=== PATIENT | male | born 1995 | race Caucasian/White ===

== ENCOUNTER 2016-12-31 12:52 | Emergency (ER) | payer SELFPAY ==
[2016-12-31] MEDS ORDERED: Ketorolac 60 MG/2 ML SDV IM ONE (13:32)
[2016-12-31] MEDS ORDERED: Ondansetron 4 MG Tab.DIS PO ONE (13:32)
--- NOTE | 2016-12-31 13:38 | EDM.PDOC ---
ED HPI GENERAL MEDICAL PROBLEM - General Chief Complaint: General Stated Complaint: FEVER,WEAK AND VOMITING Time Seen by Provider: 12/31/16 13:00 Source of Information: Reports: Patient History Limitations: Reports: No Limitations - History of Present Illness INITIAL COMMENTS - FREE TEXT/NARRATIVE: HISTORY AND PHYSICAL: History of present illness: Patient is a 21-year-old male who presents to the emergency room today with complaints of headache, fatigue, nausea, vomiting, diarrhea 1 week. States he was at work today and had one emesis and was told to call be evaluated prior to returning to work. Patient denies any fever, chills, chest pain, shortness of breath or abdominal pain. She denies any recent travel. Denies any blood in stools. No dysuria. Review of systems: As per history of present illness and below otherwise all systems reviewed and negative. Past medical history: As per history of present illness and as reviewed below otherwise noncontributory. Surgical history: As per history of present illness and as reviewed below otherwise noncontributory. Social history: No reported history of drug or alcohol abuse. Family history: As per history of present illness and as reviewed below otherwise noncontributory. Physical exam: Gen.: Nontoxic appearing 21-year-old male. Who is well-developed and well- nourished. Able to speak in full sentences without shortness of breath. Alert and oriented. HEENT: Atraumatic, normocephalic, pupils reactive, negative for conjunctival pallor or scleral icterus, mucous membranes moist, throat clear, neck supple, nontender, trachea midline. Lungs: Inspiratory wheezing noted to posterior bases bilaterally otherwise clear to auscultation, breath sounds equal bilaterally, chest nontender. Heart: S1S2, regular, negative for clicks, rubs, or JVD. Abdomen: Soft, nondistended, nontender. Negative for masses. Negative for costovertebral tenderness. Pelvis: Stable nontender. Genitourinary: Deferred. Rectal: Deferred. Extremities: Atraumatic, negative for cords or calf pain. Neurovascular unremarkable. Neuro: Awake, alert, oriented. Cranial nerves II through XII unremarkable. Cerebellum unremarkable. Motor and sensory unremarkable throughout. Exam nonfocal. Diagnostics: CBC, CMP, influenza, chest x-ray Therapeutics: Patient declined an IV at this time IM Toradol Zofran ODT Impression: Viral Illness Plan: 1. Viral illness does take several days to run its course. I would like you to continue to drink plenty of fluids to prevent dehydration. Zofran as needed to prevent nausea. Popejoy diet over the next couple days. 2. Please follow-up with your primary care provider in the next 1-2 days. Returned to the ED as needed as discussed Definitive disposition and diagnosis as appropriate pending reevaluation and review of above. head Pain Score (Numeric/FACES): 4 - Related Data Allergies Allergy/AdvReac Type Severity Reaction Status Date / Time No Known Allergies Allergy Verified 12/31/16 13:08 Home Meds: Home Meds . [No Known Home Meds] 12/31/16 [History] Past Medical History - Past Health History Medical/Surgical History: Denies Medical/Surgical History Social & Family History - Family History Family Medical History: Noncontributory - Tobacco Use Smoking Status *Q: Current Every Day Smoker Years of Tobacco use: 8 Packs/Tins Daily: 1 - Recreational Drug Use Recreational Drug Use: No ED ROS GENERAL - Review of Systems Review Of Systems: ROS reveals no pertinent complaints other than HPI. ED EXAM, GENERAL - Physical Exam Exam: See Below (See dictation) Course - Vital Signs Last Recorded V/S: Last Vital Signs Temp 36.6 C 12/31/16 12:52 Pulse 83 12/31/16 12:52 Resp 18 12/31/16 12:52 BP 147/66 H 12/31/16 12:52 Pulse Ox 99 12/31/16 12:52 - Orders/Labs/Meds Orders: Active Orders 24 hr Category Date Time Status Chest 1V Frontal [CR] Stat Exams 12/31/16 14:23 Taken Labs: Laboratory Tests 12/31/16 12/31/16 Range/Units 13:45 13:45 WBC 4.04 (4.0-11.0) K/uL RBC 4.90 (4.50-5.90) M/uL Hgb 16.0 (13.0-17.0) g/dL Hct 47.2 (38.0-50.0) % MCV 96.3 (80.0-98.0) fL MCH 32.7 H (27.0-32.0) pg MCHC 33.9 (31.0-37.0) g/dL RDW Std Deviation 50.3 (28.0-62.0) fl RDW Coeff of Dayana 14 (11.0-15.0) % Plt Count 187 (150-400) K/uL MPV 11.40 (7.40-12.00) fL Neut % (Auto) 55.4 (48.0-80.0) % Lymph % (Auto) 33.2 (16.0-40.0) % [place] % (Auto) 8.2 (0.0-15.0) % Eos % (Auto) 3.0 (0.0-7.0) % Baso % (Auto) 0.2 (0.0-1.5) % Neut # (Auto) 2.2 (1.4-5.7) K/uL Lymph # (Auto) 1.3 (0.6-2.4) K/uL [place] # (Auto) 0.3 (0.0-0.8) K/uL Eos # (Auto) 0.1 (0.0-0.7) K/uL Baso # (Auto) 0.0 (0.0-0.1) K/uL Nucleated RBC % 0.0 /100WBC Nucleated RBCs # 0 K/uL Sodium 143 (136-146) mmol/L Potassium 4.8 (3.5-5.1) mmol/L Chloride 106 (98-110) mmol/L Carbon Dioxide 29 (21-31) mmol/L BUN 12 (6.0-23.0) mg/dL Creatinine 0.9 (0.6-1.5) mg/dL Est Cr Clr Drug Dosing TNP Estimated GFR (MDRD) > 60.0 ml/min Glucose 85 (60-110) mg/dL Calcium 9.7 (8.8-10.8) mg/dL Total Bilirubin 1.1 (0.1-1.5) mg/dL AST 21 (5-40) IU/L ALT 16 (8-54) IU/L Alkaline Phosphatase 82 (40-150) Total Protein 7.1 (6.0-8.0) g/dL Albumin 4.2 (3.5-5.0) g/dL Globulin 2.9 (2.0-3.5) g/dL Albumin/Globulin Ratio 1.4 (1.3-2.8) Meds: Medications Discontinued Medications Generic Name Dose Route Start Last Admin Trade Name Sophie PRN Reason Stop Dose Admin Ketorolac Tromethamine 60 mg 12/31/16 13:32 12/31/16 13:40 Toradol IM 12/31/16 13:33 60 mg ONETIME ONE Administration Ondansetron HCl 4 mg 12/31/16 13:32 12/31/16 13:40 Zofran Odt PO 12/31/16 13:33 4 mg ONETIME ONE Administration Departure - Departure Time of Disposition: 14:40 Disposition: Home, Self-Care 01 Condition: Good Clinical Impression: Viral illness - Discharge Information Referrals: PCP,None [Primary Care Provider] - Forms: ED Department Discharge Additional Instructions: My general discharge The following information is given to patients seen in the emergency department who are being discharged to home. This information is to outline your options for follow-up care. We provide all patients seen in our emergency department with a follow-up referral. The need for follow-up, as well as the timing and circumstances, are variable depending upon the specifics of your emergency department visit. If you don't have a primary care physician on staff, we will provide you with a referral. We always advise you to contact your personal physician following an emergency department visit to inform them of the circumstance of the visit and for follow-up with them and/or the need for any referrals to a consulting specialist. The emergency department will also refer you to a specialist when appropriate. This referral assures that you have the opportunity for follow-up care with a specialist. All of these measure are taken in an effort to provide you with optimal care, which includes your follow-up. Under all circumstances we always encourage you to contact your private physician who remains a resource for coordinating your care. When calling for follow-up care, please make the office aware that this follow-up is from your recent emergency room visit. If for any reason you are refused follow-up, please contact the [facility] Emergency Department at and asked to speak to the emergency department charge nurse. [facility] [address] [place] [id number] 1. Viral illness does take several days to run its course. I would like you to continue to drink plenty of fluids to prevent dehydration. Zofran as needed to prevent nausea. Popejoy diet over the next couple days. 2. Please follow-up with your primary care provider in the next 1-2 days. Returned to the ED as needed as discussed - My Orders Last 24 Hours: My Active Orders 12/31/16 14:23 Chest 1V Frontal [CR] Stat - Assessment/Plan Last 24 Hours: My Active Orders 12/31/16 14:23 Chest 1V Frontal [CR] Stat
[2016-12-31 14:13] LABS: CHLORIDE,CL 106 mmol/L (98-110); SODIUM,NA 143 mmol/L (136-146)
--- NOTE | 2016-12-31 14:38 | CR ---
EXAMINATION: Portable chest radiograph. HISTORY: Shortness of breath. FINDINGS: The trachea is midline. The cardiomediastinal silhouette is within normal limits. No pulmonary infilt rates, effusions or pneumothorax. Osseous structures appear unremarkable. IMPRESSION: No acute cardiopulmonary process.
[2016-12-31 14:51] VITALS: BP 108/62
== END 2016-12-31 14:51 | disposition home or self-care (01) ==
LOC: MW.ED 12:52
DX: B34.9 Viral infection, unspecified (principal); F17.210 Nicotine dependence, cigarettes, uncomplicated
CPT/HCPCS: 36415; 71010; 80053; 85025; 87804; 96372; 99283; A9270; J1885

== ENCOUNTER 2018-10-22 21:59 | Emergency (ER) | payer SELFPAY ==
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
[2018-10-23 01:02] VITALS: BP 122/67
== END 2018-10-23 01:00 | disposition home or self-care (01) ==
LOC: MW.ED 21:59
DX: S00.01XA Abrasion of scalp, initial encounter (principal); F17.210 Nicotine dependence, cigarettes, uncomplicated; Y04.8XXA Assault by other bodily force, initial encounter
CPT/HCPCS: 70450; 70450-26; 99284-25

== ENCOUNTER 2018-11-10 19:01 | Emergency (ER) | payer SELFPAY ==
[2018-11-10] MEDS ORDERED: Sodium Chloride 0.9% 2.5 ML Syringe FLUSH PRN (19:18)
[2018-11-10] MEDS ORDERED: Sodium Chloride 0.9% 10 ML Syringe FLUSH PRN (19:18)
--- NOTE | 2018-11-10 19:20 | EDM.PDOC ---
ED HPI GENERAL MEDICAL PROBLEM - General Chief Complaint: Chest Pain Stated Complaint: CHEST PAIN Time Seen by Provider: 11/10/18 19:05 - History of Present Illness INITIAL COMMENTS - FREE TEXT/NARRATIVE: HISTORY AND PHYSICAL: History of present illness: Patient is 23-year-old male presents with chest pain this is vaguely described without associated shortness breath nausea vomiting diaphoresis or palpitations patient has history of anxiety he denies any other concern. Review of systems: As per history of present illness and below otherwise all systems reviewed and negative. Past medical history: As per history of present illness and as reviewed below otherwise noncontributory. Surgical history: As per history of present illness and as reviewed below otherwise noncontributory. Social history: No reported history of drug or alcohol abuse. Family history: As per history of present illness and as reviewed below otherwise noncontributory. Physical exam: HEENT: Atraumatic, normocephalic, pupils reactive, negative for conjunctival pallor or scleral icterus, mucous membranes moist, throat clear, neck supple, nontender, trachea midline. Lungs: Clear to auscultation, breath sounds equal bilaterally, chest nontender. Heart: S1S2, regular, negative for clicks, rubs, or JVD. Abdomen: Soft, nondistended, nontender. Negative for masses or hepatosplenomegaly. Negative for costovertebral tenderness. Pelvis: Stable nontender. Genitourinary: Deferred. Rectal: Deferred. Extremities: Atraumatic, negative for cords or calf pain. Neurovascular unremarkable. Neuro: Awake, alert, oriented. Cranial nerves II through XII unremarkable. Cerebellum unremarkable. Motor and sensory unremarkable throughout. Exam nonfocal. Diagnostics: CBC CMP troponin PT/INR chest x-ray EKG Therapeutics: monitor technician Impression: #1 atypical chest pain #2 history of anxiety Definitive disposition and diagnosis as appropriate pending reevaluation and review of above. chest Pain Score (Numeric/FACES): 2 - Related Data Allergies Allergy/AdvReac Type Severity Reaction Status Date / Time No Known Allergies Allergy Verified 10/22/18 22:15 Home Meds: Home Meds . [No Known Home Meds] 12/31/16 [History] Past Medical History - Past Health History Medical/Surgical History: Denies Medical/Surgical History HEENT History: Reports: None Cardiovascular History: Reports: None Respiratory History: Reports: None Gastrointestinal History: Reports: None Genitourinary History: Reports: None Musculoskeletal History: Reports: None Neurological History: Reports: None Psychiatric History: Reports: None Endocrine/Metabolic History: Reports: None Hematologic History: Reports: None Immunologic History: Reports: None Oncologic (Cancer) History: Reports: None Dermatologic History: Reports: None - Infectious Disease History Infectious Disease History: Reports: None - Past Surgical History Head Surgeries/Procedures: Reports: None Male Surgical History: Reports: None Social & Family History - Family History Family Medical History: Noncontributory - Caffeine Use Caffeine Use: Reports: None ED ROS GENERAL - Review of Systems Review Of Systems: ROS reveals no pertinent complaints other than HPI. ED EXAM, GENERAL - Physical Exam Exam: See Below (See dictation) Course - Vital Signs Last Recorded V/S: Last Vital Signs Temp 36.0 C 11/10/18 19:05 Pulse 75 11/10/18 19:05 Resp 18 11/10/18 19:05 BP 136/42 L 11/10/18 19:05 Pulse Ox 98 11/10/18 19:05 Departure - Departure Time of Disposition: 19:19 Disposition: Home, Self-Care 01 Condition: Good Clinical Impression: Atypical chest pain, History of anxiety - Discharge Information Referrals: PCP,None [Primary Care Provider] - Additional Instructions: The following information is given to patients seen in the emergency department who are being discharged to home. This information is to outline your options for follow-up care. We provide all patients seen in our emergency department with a follow-up referral. The need for follow-up, as well as the timing and circumstances, are variable depending upon the specifics of your emergency department visit. If you don't have a primary care physician on staff, we will provide you with a referral. We always advise you to contact your personal physician following an emergency department visit to inform them of the circumstance of the visit and for follow-up with them and/or the need for any referrals to a consulting specialist. The emergency department will also refer you to a specialist when appropriate. This referral assures that you have the opportunity for followup care with a specialist. All of these measure are taken in an effort to provide you with optimal care, which includes your followup. Under all circumstances we always encourage you to contact your private physician who remains a resource for coordinating your care. When calling for followup care, please make the office aware that this follow-up is from your recent emergency room visit. If for any reason you are refused follow-up, please contact the [facility] emergency department at and asked to speak to the emergency department charge nurse. ENMANUEL [facility] [place] [id number] Follow-up primary medical doctor as needed as discussed return as needed as discussed. Stop Smoking
[2018-11-10 19:45] VITALS: BP 124/71
[2018-11-10 19:52] LABS: CHLORIDE,CL 102 mmol/L (98-107); SODIUM,NA 142 mmol/L (136-148)
--- NOTE | 2018-11-10 20:16 | CR ---
INDICATION: chest pain, short of breath CHEST, ONE VIEW AP radiographs of the chest were performed. Comparison: 12/31/2016. The lungs appear clear and no pleural effusions are identified. No pneumothorax is seen. The cardiomediastinal silhouette and pulmonary vasculature appear normal, as do the visualized bones. IMPRESSION: No acute intrathoracic abnormality identified. TORO PHILLIPS MD [employer] [facility] [employer] Dictated by: Adelfo Phillips MD @ 11/10/2018 20:14:34 (Electronically Signed)
== END 2018-11-10 20:06 | disposition home or self-care (01) ==
LOC: MW.ED 19:01
DX: R07.89 Other chest pain (principal)
CPT/HCPCS: 36415; 71045; 71045-26; 80053; 84484; 85025; 85610; 93005; 99283; 99285-25

== ENCOUNTER 2019-02-11 10:38 | Emergency (ER) | payer SELFPAY ==
--- NOTE | 2019-02-11 10:49 | EDM.PDOC ---
ED HPI GENERAL MEDICAL PROBLEM - General Chief Complaint: Back Pain or Injury Stated Complaint: PAIN IN BACK Time Seen by Provider: 02/11/19 10:48 Source of Information: Reports: Patient History Limitations: Reports: No Limitations - History of Present Illness INITIAL COMMENTS - FREE TEXT/NARRATIVE: HISTORY AND PHYSICAL: History of present illness: Patient is a 23-year-old male who presents to the emergency room today with complaints of lumbar back pain which started this morning. He states the pain is to the low lumbar region, bilaterally but right greater than left. He has pain when he has to bear weight on the right lower extremity stating that the pain wraps from low back into his gluteus and posterior thigh. He denies any numbness, tingling or saddle paresthesia. Denies any urinary or fecal incontinence. Denies any neurological symptoms. Pain is aggravated with weightbearing, bending at the hip. States pain is somewhat alleviated when resting on his right side. He denies any injury, trauma or falls. Denies any previous injury or chronic back pain. Review of systems: As per history of present illness and below otherwise all systems reviewed and negative. Past medical history: As per history of present illness and as reviewed below otherwise noncontributory. Surgical history: As per history of present illness and as reviewed below otherwise noncontributory. Social history: See social history for further information Family history: As per history of present illness and as reviewed below otherwise noncontributory. Physical exam: General: Well-developed and well-nourished 23-year-old male. Alert and oriented. Nontoxic appearing and in no acute distress. HEENT: Atraumatic, normocephalic, pupils equal and reactive bilaterally, negative for conjunctival pallor or scleral icterus, mucous membranes moist, neck supple, nontender, trachea midline. No drooling or trismus noted. No meningeal signs. No hot potato voice noted. Lungs: Clear to auscultation, breath sounds equal bilaterally, chest nontender. Heart: S1S2, regular rate and rhythm without overt murmur Abdomen: Soft, nondistended, nontender. Negative for masses or hepatosplenomegaly. Negative for costovertebral tenderness. Pelvis: Stable nontender. : This was done with consent and application technical designer at bedside. No evidence of hernia. No testicular erythema, soft tissue swelling or pain. Unremarkable exam. C-spine/Back: No pinpoint vertebral tenderness upon palpation. No crepitus, step -offs or obvious deformities. Paraspinous muscular tenderness to the right above the iliac crest Patient is ambulatory into the emergency room without difficulty or deficit. Able to rock back on heels and walk on toes. Denies any urinary or fecal incontinence. Denies any numbness, tingling or saddle paresthesia. Skin: Intact, warm, dry. No lesions or rashes noted. Extremities: Atraumatic, moves all extremities per self without difficulty or deficits, negative for cords or calf pain. Neurovascular unremarkable. Neuro: Awake, alert, oriented. Cranial nerves II through XII unremarkable. Cerebellum unremarkable. Motor and sensory unremarkable throughout. Exam nonfocal. Notes: Patient states he does want his testicles looked at as he has a strange sensation of "pulling". Physical exam is within normal limits. He denies any concerns of penile drainage/discharge. Denies any concerns for STD testing. Besides the sensation of "pulling" he has no GI/ symptoms. X-ray shows no acute findings. Supportive care measures were reviewed and discussed. Voices understanding and is agreeable to plan of care. Denies any further questions or concerns at this time. Diagnostics: Lumbar x-ray Therapeutics: Toradol, Norflex (DECLINED) Prescription: Diclofenac Flexeril Impression: Lumbar Back Pain with sciatica Plan: 1. When resting please lay on a flat firm surface. Limit your immobility to prevent muscle stiffness. Get up to ambulate/move around/gentle stretching multiple times throughout the day. May alternate heat and ice to the painful areas 2. Tylenol as needed for back pain. Otherwise take the prescribed Flexeril and diclofenac as directed. Diclofenac is an anti-inflammatory so do not take any additional NSAIDs with this medication, such as ibuprofen or Aleve. Flexeril as a muscle relaxant, this medication may cause drowsiness a do not take it will driving her needing to be functioning outside of the house. 3. Please follow-up with your primary care provider as we discussed. Return to the ED as needed and as discussed. Definitive disposition and diagnosis as appropriate pending reevaluation and review of above. Lower Back Pain Score (Numeric/FACES): 7 - Related Data Allergies Allergy/AdvReac Type Severity Reaction Status Date / Time No Known Allergies Allergy Verified 02/11/19 10:54 Home Meds: Home Meds . [No Known Home Meds] 12/31/16 [History] Past Medical History - Past Health History Medical/Surgical History: Denies Medical/Surgical History HEENT History: Reports: None Cardiovascular History: Reports: None Respiratory History: Reports: None Gastrointestinal History: Reports: None Genitourinary History: Reports: None Musculoskeletal History: Reports: None Neurological History: Reports: None Psychiatric History: Reports: None Endocrine/Metabolic History: Reports: None Hematologic History: Reports: None Immunologic History: Reports: None Oncologic (Cancer) History: Reports: None Dermatologic History: Reports: None - Infectious Disease History Infectious Disease History: Reports: None - Past Surgical History Head Surgeries/Procedures: Reports: None Male Surgical History: Reports: None Social & Family History - Family History Family Medical History: Noncontributory - Caffeine Use Caffeine Use: Reports: None ED ROS GENERAL - Review of Systems Review Of Systems: Comprehensive ROS is negative, except as noted in HPI. ED EXAM,LOWER BACK PAIN/INJURY - Physical Exam Exam: See Below (See dictation) Course - Vital Signs Last Recorded V/S: Last Vital Signs Temp 97.1 F 02/11/19 10:49 Pulse 126 H 02/11/19 10:49 Resp 18 02/11/19 10:49 BP 143/62 H 02/11/19 10:49 Pulse Ox 96 02/11/19 10:49 - Orders/Labs/Meds Meds: Medications Discontinued Medications Generic Name Dose Route Start Last Admin Trade Name Freq PRN Reason Stop Dose Admin Ketorolac Tromethamine 60 mg 02/11/19 11:03 Toradol IM 02/11/19 11:04 ONETIME ONE Orphenadrine Citrate 60 mg 02/11/19 11:03 Norflex IM 02/11/19 11:04 NOW STA Departure - Departure Time of Disposition: 11:09 Disposition: Home, Self-Care 01 Clinical Impression: Lumbar back pain - Discharge Information Referrals: PCP,None [Primary Care Provider] - Forms: ED Department Discharge Additional Instructions: The following information is given to patients seen in the emergency department who are being discharged to home. This information is to outline your options for follow-up care. We provide all patients seen in our emergency department with a follow-up referral. The need for follow-up, as well as the timing and circumstances, are variable depending upon the specifics of your emergency department visit. If you don't have a primary care physician on staff, we will provide you with a referral. We always advise you to contact your personal physician following an emergency department visit to inform them of the circumstance of the visit and for follow-up with them and/or the need for any referrals to a consulting specialist. The emergency department will also refer you to a specialist when appropriate. This referral assures that you have the opportunity for follow-up care with a specialist. All of these measure are taken in an effort to provide you with optimal care, which includes your follow-up. Under all circumstances we always encourage you to contact your private physician who remains a resource for coordinating your care. When calling for follow-up care, please make the office aware that this follow-up is from your recent emergency room visit. If for any reason you are refused follow-up, please contact the [facility] Emergency Department at and asked to speak to the emergency department charge nurse. [facility] Primary Care [address] [place] [id number] [place] [address] 1. When resting please lay on a flat firm surface. Limit your immobility to prevent muscle stiffness. Get up to ambulate/move around/gentle stretching multiple times throughout the day. May alternate heat and ice to the painful areas 2. Tylenol as needed for back pain. Otherwise take the prescribed Flexeril and diclofenac as directed. Diclofenac is an anti-inflammatory so do not take any additional NSAIDs with this medication, such as ibuprofen or Aleve. Flexeril as a muscle relaxant, this medication may cause drowsiness a do not take it will driving her needing to be functioning outside of the house. 3. Please follow-up with your primary care provider as we discussed. Return to the ED as needed and as discussed.
[2019-02-11] MEDS ORDERED: Ketorolac 60 MG/2 ML SDV IM ONE (11:03)
[2019-02-11 11:04] VITALS: BP 143/62; PULSE 126
--- NOTE | 2019-02-11 11:45 | CR ---
Indication: Low back pain. Technique: Three views of the lumbar spine were obtained. Comparison: None Findings: The vertebral body heights are well maintained. Intervertebral disc space narrowing is identified at L3-4 and L5-S1. No fracture subluxation is identified. Facet joint arthropathy of the lower lumbar spine is identified. Impression: No acute fracture. Dictated by Swetha Magaña MD @ Feb 11 2019 11:42AM Signed by Dr. Swetha Magaña @ Feb 11 2019 11:43AM
== END 2019-02-11 12:00 | disposition home or self-care (01) ==
LOC: MW.ED 10:38
DX: M54.41 Lumbago with sciatica, right side (principal); M54.42 Lumbago with sciatica, left side
CPT/HCPCS: 72100; 72100-26; 99283; 99283-25

== ENCOUNTER 2019-04-15 23:39 | Emergency (ER) | payer OTHER ==
[2019-04-16 00:19] VITALS: BP 137/63; PULSE 77
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
[2019-04-16] MEDS ORDERED: Acetaminophen/oxyCODONE 325-5 MG Tab PO ONE (00:57)
[2019-04-16] MEDS ORDERED: Silver Sulfadiazine 1% Crm 50 GM Tube TOP ONE (00:57)
== END 2019-04-16 01:24 | disposition home or self-care (01) ==
LOC: MW.ED 23:39
DX: T22.412A Corrosion of unspecified degree of left forearm, initial encounter (principal); T32.0 Corrosions involving less than 10% of body surface; F17.210 Nicotine dependence, cigarettes, uncomplicated; Y29.XXXA Contact with blunt object, undetermined intent, initial encounter; Y99.0 Civilian activity done for income or pay
CPT/HCPCS: 99283; A9270

== ENCOUNTER 2019-05-01 02:26 | Emergency (ER) | payer SELFPAY ==
--- NOTE | 2019-05-01 02:36 | EDM.PDOC ---
ED HPI GENERAL MEDICAL PROBLEM - General Chief Complaint: Chest Pain Stated Complaint: CHEST PAIN Time Seen by Provider: 05/01/19 02:33 Source of Information: Reports: Patient History Limitations: Reports: No Limitations - History of Present Illness INITIAL COMMENTS - FREE TEXT/NARRATIVE: WILDA HPI: This is a 23-year-old male who woke up with chest pain radiating into his left axilla. Patient vomited. He denies any shortness of breath arm or jaw pain or diaphoresis denies any drug use or alcohol use. Patient has had multiple similar events in the past. PMHX/PSHX: Patient had a craniotomy for what sounds like an abscess Social History: Negative for tobacco, negative for alcohol, negative for street drugs or marijuana Family history: Hypertension ROS: see chart PE: VS afebrile vital signs stable General: No apparent distress Head: Atraumatic normocephalic no lumps bumps or bruises Eyes: EOMI PERRLA Ears: TMs intact no hemotympanum no signs of infection no mastoid tenderness Nose: No epistaxis nares patent no septal wall hematoma Throat: No pharyngeal erythema or exudate no tonsillar enlargement Neck: Supple, no cervical lymphadenopathy Chest wall: No point tenderness Heart: Regular rate and rhythm without murmur gallop or rub Lungs: Clear to auscultation and percussion without rales rhonchi or wheeze Abdomen: Soft nontender nondistended without guarding rigidity or rebound Neck: No spinal point tenderness full range of motion in all 6 directions Back: No spinal paraspinal or CVA tenderness Extremities: full rom through out. no effusions skin: Warm dry intact no rashes neurologic: cranial nerves II through XII intact. No focal motor or sensory deficits noted MDM: Differential diagnosis: ED course: Diagnosis: Disposition: Left Chest Pain Score (Numeric/FACES): 10 - Related Data Allergies Allergy/AdvReac Type Severity Reaction Status Date / Time No Known Allergies Allergy Verified 05/01/19 02:32 Home Meds: Home Meds . [No Known Home Meds] 05/01/19 [History] Past Medical History - Past Health History Medical/Surgical History: Denies Medical/Surgical History HEENT History: Reports: None Cardiovascular History: Reports: None Respiratory History: Reports: None Gastrointestinal History: Reports: None Genitourinary History: Reports: None Musculoskeletal History: Reports: None Neurological History: Reports: None Psychiatric History: Reports: None Endocrine/Metabolic History: Reports: None Hematologic History: Reports: None Immunologic History: Reports: None Oncologic (Cancer) History: Reports: None Dermatologic History: Reports: None - Infectious Disease History Infectious Disease History: Reports: None - Past Surgical History Head Surgeries/Procedures: Reports: None Male Surgical History: Reports: None Social & Family History - Family History Family Medical History: Noncontributory - Caffeine Use Caffeine Use: Reports: None ED ROS GENERAL - Review of Systems Review Of Systems: Comprehensive ROS is negative, except as noted in HPI. Respiratory: Reports: No Symptoms Cardiovascular: Reports: Chest Pain ED EXAM, GENERAL - Physical Exam Exam: See Below (See my dictation) Course - Vital Signs Last Recorded V/S: Last Vital Signs Temp 36.0 C 05/01/19 02:30 Pulse 88 05/01/19 02:30 Resp 22 H 05/01/19 02:30 BP 123/80 05/01/19 02:30 Pulse Ox 98 05/01/19 02:30 - Orders/Labs/Meds Orders: Active Orders 24 hr Category Date Time Status EKG Documentation Completion [RC] STAT Care 05/01/19 02:33 Active Meds: Medications Discontinued Medications Generic Name Dose Route Start Last Admin Trade Name Freq PRN Reason Stop Dose Admin Lorazepam 0.5 mg 05/01/19 02:44 05/01/19 02:51 Ativan PO 05/01/19 02:45 0.5 mg ONETIME ONE Administration Departure - Departure Time of Disposition: 03:10 Disposition: Home, Self-Care 01 Clinical Impression: Atypical chest pain Referrals: Arturo Jhaveri MD [Primary Care Provider] - Forms: ED Department Discharge Additional Instructions: Follow-up with your primary care doctor for further evaluation. Return if getting worse in any way. Sepsis Event Note - Evaluation Sepsis Screening Result: No Definite Risk - Focused Exam Vital Signs: Vital Signs Temp Pulse Resp BP Pulse Ox 05/01/19 02:30 36.0 C 88 22 H 123/80 98 Date Exam was Performed: 05/01/19 Time Exam was Performed: 03:10 - My Orders Last 24 Hours: My Active Orders 05/01/19 02:33 EKG Documentation Completion [RC] STAT - Assessment/Plan Last 24 Hours: My Active Orders 05/01/19 02:33 EKG Documentation Completion [RC] STAT
[2019-05-01] MEDS ORDERED: LORazepam 0.5 MG Tab PO ONE (02:44)
--- NOTE | 2019-05-01 02:59 | CR ---
INDICATION: Chest pain TECHNIQUE: Frontal view chest COMPARISON: November 10, 2018 FINDINGS/IMPRESSION : Normal cardiomediastinal silhouette. Clear lungs and pleural spaces. No acute osseous abnormality. Dictated by Kristyn Snyder MD @ May 01 2019 2:57AM Signed by Dr. Kristyn Snyder @ May 01 2019 2:58AM
[2019-05-01 03:11] VITALS: BP 114/72; PULSE 85
== END 2019-05-01 03:18 | disposition home or self-care (01) ==
LOC: MW.ED 02:26
DX: R07.89 Other chest pain (principal)
CPT/HCPCS: 71045; 93005; 99285; A9270; 99283

== ENCOUNTER 2019-05-11 20:34 | Emergency (ER) | payer BC ==
[2019-05-11 21:19] LABS: BLOOD UREA NITROGEN,BUN 16 mg/dL (7.0-18.0); CARBON DIOXIDE,CO2 29.5 mmol/L (21.0-32.0); CHLORIDE,CL 106 mmol/L (98-107); GLUCOSE RANDOM 90 mg/dL (74-106); POTASSIUM,K 4.2 mmol/L (3.5-5.1); SODIUM,NA 142 mmol/L (136-148)
--- NOTE | 2019-05-11 21:20 | CR ---
INDICATION: Chest pain, lightheadedness/dizziness, syncope, left arm and leg pain. TECHNIQUE: AP upright portable chest. COMPARISON: 05/01/2019. FINDINGS: The lungs are clear without pneumothorax. Normal heart size and pulmonary vascular pattern with no pleural effusions. Intact osseous thorax. IMPRESSION: No acute radiographic chest finding. Dictated by Beto Boss MD @ May 11 2019 9:16PM Signed by Dr. Beto Boss @ May 11 2019 9:17PM
--- NOTE | 2019-05-11 21:32 | CT ---
INDICATION: passed out CT HEAD WITHOUT CONTRAST TECHNIQUE: Multiple axial CT images were performed through the head without intravenous contrast administration. COMPARISON: 10/22/[address] FINDINGS: No acute intracranial hemorrhage is identified. No extra-axial collections are evident and there is no mass effect or midline shift. Ventricles are normal in size and configuration. Brain parenchyma appears normal with unremarkable christian-white differentiation. There are unchanged small defects in the low right occipital calvarium which may represent toney holes. No fractures are seen. Included portions of the paranasal sinuses and mastoid air cells are normally aerated. IMPRESSION: No acute intracranial abnormality identified. TORO PHILLIPS MD [facility] Dictated by Adelfo Phillips MD @ 05/11/2019 9:31:12 PM Dictated by: Adelfo Phillips MD @ 05/11/2019 21:31:33 (Electronically Signed)
--- NOTE | 2019-05-11 22:01 | EDM.PDOC ---
ED HPI GENERAL MEDICAL PROBLEM - General Chief Complaint: Chest Pain Stated Complaint: CHEST PAIN,PASSED OUT AT WORK Time Seen by Provider: 05/11/19 20:38 Source of Information: Reports: Patient History Limitations: Reports: No Limitations - History of Present Illness INITIAL COMMENTS - FREE TEXT/NARRATIVE: CC syncope chest pain HPI: This is a 23-year-old male who returns to the emergency department twice in 1 week for chest pain. Patient reports ongoing left-sided chest pain left arm pain and left leg pain for over a week. He apparently was experiencing this pain while at work today sat down in a chair and then when he stood up he had a near syncopal episode did not actually lose consciousness did not strike his head. Denies any slurred speech or blurry vision. He describes his patient as being sharp substernal in location respirophasic and radiating to his left arm. He also has paresthesias throughout the left side of his body. PMHX/PSHX: Patient had a brain abscess and a craniotomy in the past Social History: Negative for tobacco, negative for alcohol, negative for street drugs or marijuana Family history: Hypertension ROS: see chart PE: VS afebrile vital signs stable General: No apparent distress Head: Atraumatic normocephalic no lumps bumps or bruises Eyes: EOMI PERRLA Ears: TMs intact no hemotympanum no signs of infection no mastoid tenderness Nose: No epistaxis nares patent no septal wall hematoma Throat: No pharyngeal erythema or exudate no tonsillar enlargement Neck: Supple, no cervical lymphadenopathy Chest wall: No point tenderness Heart: Regular rate and rhythm without murmur gallop or rub Lungs: Clear to auscultation and percussion without rales rhonchi or wheeze Abdomen: Soft nontender nondistended without guarding rigidity or rebound Neck: No spinal point tenderness full range of motion in all 6 directions Back: No spinal paraspinal or CVA tenderness Extremities: full rom through out. no effusions skin: Warm dry intact no rashes neurologic: cranial nerves II through XII intact. No focal motor or sensory deficits noted NIH of 0 Differential diagnosis: MDM: Pulmonary embolism acute coronary syndrome cardiac arrhythmia anemia electrolyte abnormality intracranial bleed tumor mass CVA DVT ED course: This is a 23-year-old male that was seen here earlier in the week for chest pain had a negative EKG. Appeared to have some anxiety at that time. He had no risk factors for any acute intrathoracic emergency and his EKG was normal. He comes back today with ongoing left-sided chest pain and paresthesias throughout the left side of his body and a near syncopal episode Today's work-up showed a normal EKG and negative serial troponins. No signs of an acute coronary syndrome. His d-dimer was negative therefore no signs of a pulmonary embolism my clinical suspicion for a PE is low. His neurologic exam was entirely nonfocal and CT scan of his head was negative no signs of any intracranial bleeding tumor mass or CVA. His drug screen is negative. CBC and chemistries are unremarkable. His orthostatics were negative as well. Patient appeared to have a near syncopal vasovagal episode today. His quality assurance monitor final showed a normal sinus throughout and is not having any palpitations. Etiology of patient's complaints are unclear at this point but he has close outpatient follow-up arranged and will encourage a further outpatient work-up. Diagnosis: Vagal syncope, paresthesias Disposition: Home Middle of Chest Pain Score (Numeric/FACES): 8 - Related Data Allergies Allergy/AdvReac Type Severity Reaction Status Date / Time No Known Allergies Allergy Verified 05/11/19 20:41 Home Meds: Home Meds . [No Known Home Meds] 05/01/19 [History] Past Medical History - Past Health History Medical/Surgical History: Denies Medical/Surgical History HEENT History: Reports: None Cardiovascular History: Reports: None Respiratory History: Reports: None Gastrointestinal History: Reports: None Genitourinary History: Reports: None Musculoskeletal History: Reports: None Neurological History: Reports: None Psychiatric History: Reports: None Endocrine/Metabolic History: Reports: None Hematologic History: Reports: None Immunologic History: Reports: None Oncologic (Cancer) History: Reports: None Dermatologic History: Reports: None - Infectious Disease History Infectious Disease History: Reports: None - Past Surgical History Head Surgeries/Procedures: Reports: None Male Surgical History: Reports: None Social & Family History - Family History Family Medical History: Noncontributory - Tobacco Use Smoking Status *Q: Current Some Day Smoker Years of Tobacco use: 4 Packs/Tins Daily: 1 - Caffeine Use Caffeine Use: Reports: Coffee, Energy Drinks, Soda - Recreational Drug Use Recreational Drug Use: No ED ROS GENERAL - Review of Systems Review Of Systems: Comprehensive ROS is negative, except as noted in HPI. ED EXAM, GENERAL - Physical Exam Exam: See Below Free Text/Narrative:: See my dictation Course - Vital Signs Last Recorded V/S: Last Vital Signs Temp 36.9 C 05/11/19 20:38 Pulse 78 05/11/19 20:38 Resp 20 05/11/19 20:38 BP 137/77 05/11/19 20:38 Pulse Ox 98 05/11/19 20:38 Orthostatic Blood Pressure [ 97/58 Standing] Orthostatic Blood Pressure [ 117/60 Sitting] Orthostatic Blood Pressure [ 122/69 Supine] - Orders/Labs/Meds Orders: Active Orders 24 hr Category Date Time Status EKG Documentation Completion [RC] STAT Care 05/11/19 20:47 Active Labs: Laboratory Tests 05/11/19 05/11/19 05/11/19 Range/Units 20:45 20:45 20:45 WBC 4.31 (4.0-11.0) K/uL RBC 5.01 (4.50-5.90) M/uL Hgb 16.0 (13.0-17.0) g/dL Hct 46.0 (38.0-50.0) % MCV 91.8 (80.0-98.0) fL MCH 31.9 (27.0-32.0) pg MCHC 34.8 (31.0-37.0) g/dL RDW Std Deviation 45.6 (28.0-62.0) fl RDW Coeff of Dayana 14 (11.0-15.0) % Plt Count 181 (150-400) K/uL MPV 11.00 (7.40-12.00) fL Neut % (Auto) 49.4 (48.0-80.0) % Lymph % (Auto) 36.7 (16.0-40.0) % Mclennan % (Auto) 10.2 (0.0-15.0) % Eos % (Auto) 3.5 (0.0-7.0) % Baso % (Auto) 0.2 (0.0-1.5) % Neut # (Auto) 2.1 (1.4-5.7) K/uL Lymph # (Auto) 1.6 (0.6-2.4) K/uL Mclennan # (Auto) 0.4 (0.0-0.8) K/uL Eos # (Auto) 0.2 (0.0-0.7) K/uL Baso # (Auto) 0.0 (0.0-0.1) K/uL Nucleated RBC % 0.0 /100WBC Nucleated RBCs # 0 K/uL D-Dimer, Quantitative 0.19 (0.0-0.50) mg/L FEU Sodium 142 (136-148) mmol/L Potassium 4.2 (3.5-5.1) mmol/L Chloride 106 (98-107) mmol/L Carbon Dioxide 29.5 (21.0-32.0) mmol/L BUN 16 (7.0-18.0) mg/dL Creatinine 0.9 (0.8-1.3) mg/dL Est Cr Clr Drug Dosing 137.72 mL/min Estimated GFR (MDRD) > 60.0 ml/min Glucose 90 (74-106) mg/dL Calcium 9.0 (8.5-10.1) mg/dL Total Bilirubin 0.7 (0.2-1.0) mg/dL AST 34 (15-37) IU/L ALT 66 H (14-63) IU/L Alkaline Phosphatase 76 (46-116) U/L Troponin I < 0.050 (0.000-0.056) ng/mL Total Protein 7.4 (6.4-8.2) g/dL Albumin 4.1 (3.4-5.0) g/dL Globulin 3.3 (2.6-4.0) g/dL Albumin/Globulin Ratio 1.2 (0.9-1.6) Urine Opiates Screen (NEGATIVE) Ur Oxycodone Screen (NEGATIVE) Urine Methadone Screen (NEGATIVE) Ur Barbiturates Screen (NEGATIVE) Ur Phencyclidine Scrn (NEGATIVE) Ur Amphetamine Screen (NEGATIVE) U Methamphetamines Scrn (NEGATIVE) U Benzodiazepines Scrn (NEGATIVE) U Cocaine Metab Screen (NEGATIVE) U Marijuana (THC) Screen (NEGATIVE) 05/11/19 Range/Units 21:49 WBC (4.0-11.0) K/uL RBC (4.50-5.90) M/uL Hgb (13.0-17.0) g/dL Hct (38.0-50.0) % MCV (80.0-98.0) fL MCH (27.0-32.0) pg MCHC (31.0-37.0) g/dL RDW Std Deviation (28.0-62.0) fl RDW Coeff of Dayana (11.0-15.0) % Plt Count (150-400) K/uL MPV (7.40-12.00) fL Neut % (Auto) (48.0-80.0) % Lymph % (Auto) (16.0-40.0) % Mclennan % (Auto) (0.0-15.0) % Eos % (Auto) (0.0-7.0) % Baso % (Auto) (0.0-1.5) % Neut # (Auto) (1.4-5.7) K/uL Lymph # (Auto) (0.6-2.4) K/uL Mclennan # (Auto) (0.0-0.8) K/uL Eos # (Auto) (0.0-0.7) K/uL Baso # (Auto) (0.0-0.1) K/uL Nucleated RBC % /100WBC Nucleated RBCs # K/uL D-Dimer, Quantitative (0.0-0.50) mg/L FEU Sodium (136-148) mmol/L Potassium (3.5-5.1) mmol/L Chloride (98-107) mmol/L Carbon Dioxide (21.0-32.0) mmol/L BUN (7.0-18.0) mg/dL Creatinine (0.8-1.3) mg/dL Est Cr Clr Drug Dosing mL/min Estimated GFR (MDRD) ml/min Glucose (74-106) mg/dL Calcium (8.5-10.1) mg/dL Total Bilirubin (0.2-1.0) mg/dL AST (15-37) IU/L ALT (14-63) IU/L Alkaline Phosphatase (46-116) U/L Troponin I (0.000-0.056) ng/mL Total Protein (6.4-8.2) g/dL Albumin (3.4-5.0) g/dL Globulin (2.6-4.0) g/dL Albumin/Globulin Ratio (0.9-1.6) Urine Opiates Screen NEGATIVE (NEGATIVE) Ur Oxycodone Screen NEGATIVE (NEGATIVE) Urine Methadone Screen NEGATIVE (NEGATIVE) Ur Barbiturates Screen NEGATIVE (NEGATIVE) Ur Phencyclidine Scrn NEGATIVE (NEGATIVE) Ur Amphetamine Screen NEGATIVE (NEGATIVE) U Methamphetamines Scrn NEGATIVE (NEGATIVE) U Benzodiazepines Scrn NEGATIVE (NEGATIVE) U Cocaine Metab Screen NEGATIVE (NEGATIVE) U Marijuana (THC) Screen NEGATIVE (NEGATIVE) Departure - Departure Time of Disposition: 22:16 Disposition: Home, Self-Care 01 Clinical Impression: Vasovagal syncope Instructions: Near-Syncope, [id number] Referrals: Arturo Jhaveri MD [Primary Care Provider] - Forms: ED Department Discharge Additional Instructions: Follow-up with your primary care doctor as soon as possible. Sepsis Event Note - Evaluation Sepsis Screening Result: No Definite Risk - Focused Exam Vital Signs: Vital Signs Temp Pulse Resp BP Pulse Ox 05/11/19 20:38 36.9 C 78 20 137/77 98 Date Exam was Performed: 05/11/19 Time Exam was Performed: 22:13 - My Orders Last 24 Hours: My Active Orders 05/11/19 20:47 EKG Documentation Completion [RC] STAT - Assessment/Plan Last 24 Hours: My Active Orders 05/11/19 20:47 EKG Documentation Completion [RC] STAT
[2019-05-11 22:34] VITALS: BP 136/47; PULSE 75
== END 2019-05-11 22:28 | disposition home or self-care (01) ==
LOC: MW.ED 20:34
DX: R55 Syncope and collapse (principal); F17.210 Nicotine dependence, cigarettes, uncomplicated; R20.2 Paresthesia of skin
CPT/HCPCS: 70450; 70450-26; 71045; 71045-26; 80053; 80305-QW; 84484; 85025; 85379; 93005; 99284; 99285-25

== ENCOUNTER 2019-05-26 04:10 | Emergency (ER) | payer BC ==
--- NOTE | 2019-05-26 04:44 | EDM.PDOC ---
ED HPI GENERAL MEDICAL PROBLEM - General Chief Complaint: Chest Pain Stated Complaint: CHEST PAIN Time Seen by Provider: 05/26/19 04:32 Source of Information: Reports: Patient History Limitations: Reports: No Limitations - History of Present Illness INITIAL COMMENTS - FREE TEXT/NARRATIVE: 23-year-old male presents the emergency room with chest pains on and off for the last couple months. Patient states he has pain going up to his neck and down his left arm. Patient recently was seen by his physician and is scheduled for stress test. Onset: Today Duration: Hour(s): Location: Reports: Chest Quality: Reports: Ache, Sharp, Stabbing Severity: Mild Improves with: Reports: None Worsens with: Reports: None Associated Symptoms: Reports: No Other Symptoms chest area Pain Score (Numeric/FACES): 7 - Related Data Allergies Allergy/AdvReac Type Severity Reaction Status Date / Time No Known Allergies Allergy Verified 05/26/19 04:14 Home Meds: Home Meds Citalopram [Citalopram HBr] 10 mg PO DAILY 05/26/19 [History] ClonazePAM [KlonoPIN] 0.5 mg PO BID 05/26/19 [History] Past Medical History - Past Health History Medical/Surgical History: Denies Medical/Surgical History HEENT History: Reports: None Cardiovascular History: Reports: None Respiratory History: Reports: None Gastrointestinal History: Reports: None Genitourinary History: Reports: None Musculoskeletal History: Reports: None Neurological History: Reports: None Psychiatric History: Reports: Anxiety, Panic Attack Endocrine/Metabolic History: Reports: None Insulin Pump Model and Set Up Mechanic Coil Winding Machines: N/A Hematologic History: Reports: None Immunologic History: Reports: None Oncologic (Cancer) History: Reports: None Dermatologic History: Reports: None - Infectious Disease History Infectious Disease History: Reports: None - Past Surgical History Head Surgeries/Procedures: Reports: None Male Surgical History: Reports: None Social & Family History - Family History Family Medical History: Noncontributory - Tobacco Use Smoking Status *Q: Current Status Unknown - Caffeine Use Caffeine Use: Reports: Coffee - Recreational Drug Use Recreational Drug Use: No ED ROS GENERAL - Review of Systems Review Of Systems: See Below Constitutional: Reports: No Symptoms HEENT: Reports: No Symptoms Respiratory: Reports: No Symptoms, Shortness of Breath Cardiovascular: Reports: No Symptoms, Chest Pain Endocrine: Reports: No Symptoms GI/Abdominal: Reports: No Symptoms : Reports: No Symptoms Musculoskeletal: Reports: No Symptoms Skin: Reports: No Symptoms Neurological: Reports: No Symptoms Psychiatric: Reports: No Symptoms Hematologic/Lymphatic: Reports: No Symptoms Immunologic: Reports: No Symptoms ED EXAM, GENERAL - Physical Exam Exam: See Below Exam Limited By: No Limitations General Appearance: Alert, WD/WN, No Apparent Distress Eye Exam: Bilateral Eye: Normal Fundi, Normal Inspection, PERRL Ears: Normal External Exam, Normal Canal, Hearing Grossly Normal, Normal TMs Ear Exam: Bilateral Ear: Auricle Normal, Canal Normal, TM normal, Discharge Nose: Normal Inspection, Normal Mucosa, No Blood Throat/Mouth: Normal Inspection, Normal Lips, Normal Teeth, Normal Gums, Normal Oropharynx, Normal Voice Head: Atraumatic, Normocephalic Neck: Normal Inspection, Supple, Non-Tender, Full Range of Motion Respiratory/Chest: No Respiratory Distress, Lungs Clear, Normal Breath Sounds, No Accessory Muscle Use, Chest Non-Tender Back Exam: Normal Inspection, Full Range of Motion Extremities: Normal Inspection, Normal Range of Motion Neurological: Alert, Oriented, CN II-XII Intact, Normal Cognition, Normal Gait, Normal Reflexes, No Motor/Sensory Deficits Psychiatric: Normal Affect, Normal Mood Skin Exam: Warm, Dry, Intact, Normal Color, No Rash Lymphatic: No Adenopathy EKG INTERPRETATION Rhythm: NSR [place]: Normal P-Wave: Present QRS: Normal ST-T: Normal QT: Normal Course - Vital Signs Last Recorded V/S: Last Vital Signs Temp 97.7 F 05/26/19 04:15 Pulse 86 05/26/19 04:15 Resp 18 05/26/19 04:15 BP 130/82 05/26/19 04:15 Pulse Ox 98 05/26/19 04:15 - Orders/Labs/Meds Labs: Laboratory Tests 05/26/19 05/26/19 Range/Units 04:20 04:20 WBC 5.75 (4.0-11.0) K/uL RBC 5.01 (4.50-5.90) M/uL Hgb 15.8 (13.0-17.0) g/dL Hct 45.6 (38.0-50.0) % MCV 91.0 (80.0-98.0) fL MCH 31.5 (27.0-32.0) pg MCHC 34.6 (31.0-37.0) g/dL RDW Std Deviation 43.1 (28.0-62.0) fl RDW Coeff of Dayana 13 (11.0-15.0) % Plt Count 206 (150-400) K/uL MPV 11.30 (7.40-12.00) fL Neut % (Auto) 51.6 (48.0-80.0) % Lymph % (Auto) 37.6 (16.0-40.0) % Bradford % (Auto) 7.5 (0.0-15.0) % Eos % (Auto) 3.1 (0.0-7.0) % Baso % (Auto) 0.2 (0.0-1.5) % Neut # (Auto) 3.0 (1.4-5.7) K/uL Lymph # (Auto) 2.2 (0.6-2.4) K/uL Bradford # (Auto) 0.4 (0.0-0.8) K/uL Eos # (Auto) 0.2 (0.0-0.7) K/uL Baso # (Auto) 0.0 (0.0-0.1) K/uL Nucleated RBC % 0.0 /100WBC Nucleated RBCs # 0 K/uL Sodium 142 (136-148) mmol/L Potassium 4.0 (3.5-5.1) mmol/L Chloride 104 (98-107) mmol/L Carbon Dioxide 31.0 (21.0-32.0) mmol/L BUN 13 (7.0-18.0) mg/dL Creatinine 1.0 (0.8-1.3) mg/dL Est Cr Clr Drug Dosing 123.94 mL/min Estimated GFR (MDRD) > 60.0 ml/min Glucose 94 (74-106) mg/dL Calcium 9.1 (8.5-10.1) mg/dL Total Bilirubin 1.3 H (0.2-1.0) mg/dL AST 23 (15-37) IU/L ALT 48 (14-63) IU/L Alkaline Phosphatase 81 (46-116) U/L Troponin I < 0.050 (0.000-0.056) ng/mL Total Protein 7.2 (6.4-8.2) g/dL Albumin 4.0 (3.4-5.0) g/dL Globulin 3.2 (2.6-4.0) g/dL Albumin/Globulin Ratio 1.3 (0.9-1.6) Departure - Departure Time of Disposition: 05:05 Disposition: Home, Self-Care 01 Clinical Impression: Costochondritis, acute Instructions: Costochondritis, [id number], Chest Wall Pain, [id number] Referrals: Mika Haas MD [Primary Care Provider] - Forms: ED Department Discharge Sepsis Event Note - Evaluation Sepsis Screening Result: No Definite Risk - Focused Exam Vital Signs: Vital Signs Temp Pulse Resp BP Pulse Ox 05/26/19 04:15 97.7 F 86 18 130/82 98 Date Exam was Performed: 05/26/19 Time Exam was Performed: 05:04
--- NOTE | 2019-05-26 04:55 | CR ---
INDICATION: Chest pain TECHNIQUE: Frontal view of the chest. COMPARISON: None FINDINGS: The lungs are clear. There is no sizable pleural effusion or pneumothorax. The cardiomediastinal silhouette is normal. The visualized osseous structures are unremarkable. IMPRESSION: No acute intrathoracic process. Dictated by Valeriano Sarmiento MD @ May 26 2019 4:53AM Signed by Dr. Valeriano Sarmiento @ May 26 2019 4:53AM
[2019-05-26 04:57] LABS: BLOOD UREA NITROGEN,BUN 13 mg/dL (7.0-18.0); CHLORIDE,CL 104 mmol/L (98-107); GLUCOSE RANDOM 94 mg/dL (74-106); SODIUM,NA 142 mmol/L (136-148)
[2019-05-26 05:31] VITALS: BP 121/76; PULSE 74
== END 2019-05-26 05:30 | disposition home or self-care (01) ==
LOC: MW.ED 04:10
DX: M94.0 Chondrocostal junction syndrome [Tietze] (principal); F41.0 Panic disorder [episodic paroxysmal anxiety]; Z79.899 Other long term (current) drug therapy
CPT/HCPCS: 36415; 71045; 71045-26; 80053; 84484; 85025; 93005; 99283; 99285-25

== ENCOUNTER 2019-06-07 09:15 | Emergency (ER) | payer BC, OTHER ==
--- NOTE | 2019-06-07 10:23 | EDM.PDOC ---
ED HPI GENERAL MEDICAL PROBLEM - General Chief Complaint: General Stated Complaint: WOUND ON LEG Time Seen by Provider: 06/07/19 10:06 Source of Information: Reports: Patient History Limitations: Reports: No Limitations - History of Present Illness INITIAL COMMENTS - FREE TEXT/NARRATIVE: HISTORY AND PHYSICAL: History of present illness: Patient is a 23-year-old male who presents to the emergency room with complaints of chest pain x2 months and requested evaluation of a laceration. Patient reports that he has had persistent chest pain over the past 2 months that radiates into his left axilla/arm. He states taking in a deep breath does worsen the pain. Reports no alleviating factors. Does have intermittent shortness of breath with exertion. He has been seen in our emergency room 3 times last month for evaluation of this. He did see Dr. Haas at [place] a week ago for evaluation of this/follow-up as well. His exam and diagnostics have been unremarkable. Patient states he has been told numerous things of what the pain could be related to and he disagrees, stating that he believes it is related to an old laceration that is not healing to his left anterior thigh. He has a small healing laceration to the left anterior thigh that occurred approximately 2+ months ago. He states that the healing laceration scabs and sloughs off. He has not had any fluctuance or surrounding erythema, no redness streaking up or down his leg. He is concerned that he may have a tetanus infection after doing some research online. He states he will occasionally have some muscle cramping in his legs. He describes this as intermittent and brief. During 1 of his ER visits he was informed that this could be anxiety related as he does have a history of panic attacks/anxiety. Patient states he was prescribed citalopram, states he only took 1 pill of this and it did not help his symptoms. Patient denies any fever, chills, headache, change in vision, syncope or near syncope. Denies any neck pain/stiffness, back pain, or cough. Denies any abdominal pain, nausea, vomiting, diarrhea, constipation or dysuria. Has not noted any blood in urine or stool. Patient has been eating and drinking appropriately. Review of systems: As per history of present illness and below otherwise all systems reviewed and negative. Past medical history: As per history of present illness and as reviewed below otherwise noncontributory. Surgical history: As per history of present illness and as reviewed below otherwise noncontributory. Social history: See social history for further information Family history: As per history of present illness and as reviewed below otherwise noncontributory. Physical exam: General: Well-developed and well-nourished 23-year-old male. Alert and oriented. Nontoxic-appearing and in no acute distress. HEENT: Atraumatic, normocephalic, pupils equal and reactive bilaterally, negative for conjunctival pallor or scleral icterus, mucous membranes moist, TMs normal bilaterally, throat clear, neck supple, nontender, trachea midline. No drooling or trismus noted. No meningeal signs. No hot potato voice noted. Lungs: Clear to auscultation, breath sounds equal bilaterally, chest nontender. Heart: S1S2, regular rate and rhythm without overt murmur Abdomen: Soft, nondistended, nontender. Negative for masses or hepatosplenomegaly. Negative for costovertebral tenderness. Pelvis: Stable nontender. Skin: 1.5 cm scab noted to the left mid anterior thigh. No fluctuance or surrounding erythema. Otherwise remaining skin is intact, warm, dry. No lesions or rashes noted. Extremities: Atraumatic, moves all extremities per self without difficulty or deficits, negative for cords or calf pain. Neurovascular unremarkable. Neuro: Awake, alert, oriented. Cranial nerves II through XII unremarkable. Cerebellum unremarkable. Motor and sensory unremarkable throughout. Exam nonfocal. Notes: Patient's reflexes are intact. He has no nuchal rigidity with quick motion. I did have a lengthy discussion with the patient about his normal physical examination. I did offer to repeat some lab work along with checking his thyroid at this time as I see this is not been evaluated in the past. We also discussed possibly doing some imaging of his chest to rule out PE. Has had CBC , CMP, troponins, EKG, d-dimer, drug screen all of which have been normal in his past ER visits. He states his primary reason for being here is to have labs drawn to "check for tetanus". He was asked on several occasions if he wanted any labs or further investigation of this chronic chest pain, he declines. He refuses an EKG and basic labs to be done at this time. He states he does have a stress test scheduled for next month. We discussed signs and symptoms that would prompt him to the return to the emergency room. Supportive care measures were reviewed and discussed. Voices understanding directions and the need for close follow-up with Dr Haas. Denies any further questions or concerns at this time. Diagnostics: Declines Therapeutics: Declines Prescription: None Impression: Encounter for medical screening exam Plan: 1. You have had CBC, CMP, D.Dimer, Troponin, EKG, CXR, and UA done in the ER which have been normal. You have an appointment with Dr Haas for a stress test , please keep this appointment. 2. Continue taking Tylenol and/or Ibuprofen as directed and as needed 3. Return tot he ED as needed and as discussed. Definitive disposition and diagnosis as appropriate pending reevaluation and review of above. Left Chest Pain Score (Numeric/FACES): 5 - Related Data Allergies Allergy/AdvReac Type Severity Reaction Status Date / Time No Known Allergies Allergy Verified 06/07/19 09:46 Home Meds: Home Meds . [No Known Home Meds] 06/07/19 [History] Past Medical History - Past Health History Medical/Surgical History: Denies Medical/Surgical History HEENT History: Reports: None Cardiovascular History: Reports: None Respiratory History: Reports: None Gastrointestinal History: Reports: None Genitourinary History: Reports: None Musculoskeletal History: Reports: None Neurological History: Reports: None Psychiatric History: Reports: Anxiety, Panic Attack Endocrine/Metabolic History: Reports: None Insulin Pump Model and Brick Pointer: N/A Hematologic History: Reports: None Immunologic History: Reports: None Oncologic (Cancer) History: Reports: None Dermatologic History: Reports: None - Infectious Disease History Infectious Disease History: Reports: None - Past Surgical History Head Surgeries/Procedures: Reports: None Male Surgical History: Reports: None Social & Family History - Family History Family Medical History: Noncontributory - Tobacco Use Smoking Status *Q: Current Some Day Smoker Years of Tobacco use: 11 Packs/Tins Daily: 0.5 - Caffeine Use Caffeine Use: Reports: None - Recreational Drug Use Recreational Drug Use: No ED ROS GENERAL - Review of Systems Review Of Systems: Comprehensive ROS is negative, except as noted in HPI. ED EXAM, GENERAL - Physical Exam Exam: See Below (See dictation) Course - Vital Signs Last Recorded V/S: Last Vital Signs Temp 97.3 F 06/07/19 09:42 Pulse 85 06/07/19 09:42 Resp 18 06/07/19 09:42 BP 129/78 06/07/19 09:42 Pulse Ox 96 06/07/19 09:42 Departure - Departure Time of Disposition: 10:26 Disposition: Against Medical Advice 07 Clinical Impression: Encounter for medical screening examination - Discharge Information Referrals: Mika Haas MD [Primary Care Provider] - Forms: ED Department Discharge Additional Instructions: The following information is given to patients seen in the emergency department who are being discharged to home. This information is to outline your options for follow-up care. We provide all patients seen in our emergency department with a follow-up referral. The need for follow-up, as well as the timing and circumstances, are variable depending upon the specifics of your emergency department visit. If you don't have a primary care physician on staff, we will provide you with a referral. We always advise you to contact your personal physician following an emergency department visit to inform them of the circumstance of the visit and for follow-up with them and/or the need for any referrals to a consulting specialist. The emergency department will also refer you to a specialist when appropriate. This referral assures that you have the opportunity for follow-up care with a specialist. All of these measure are taken in an effort to provide you with optimal care, which includes your follow-up. Under all circumstances we always encourage you to contact your private physician who remains a resource for coordinating your care. When calling for follow-up care, please make the office aware that this follow-up is from your recent emergency room visit. If for any reason you are refused follow-up, please contact the [facility] Emergency Department at and asked to speak to the emergency department charge nurse. [facility] [address] [place] [id number] [id number] 1. You have had CBC, CMP, D.Dimer, Troponin, EKG, CXR, and UA done in the ER which have been normal. You have an appointment with Dr Haas for a stress test , please keep this appointment. 2. Continue taking Tylenol and/or Ibuprofen as directed and as needed 3. Return tot he ED as needed and as discussed. Sepsis Event Note - Evaluation Sepsis Screening Result: No Definite Risk - Focused Exam Vital Signs: Vital Signs Temp Pulse Resp BP Pulse Ox 06/07/19 09:42 97.3 F 85 18 129/78 96 Date Exam was Performed: 06/07/19 Time Exam was Performed: 10:28
== END 2019-06-07 10:42 | disposition left against medical advice (07) ==
LOC: MW.ED 09:15
CPT/HCPCS: 99283; 99284

== ENCOUNTER 2019-06-15 00:49 | Emergency (ER) | payer MEDICAID ==
[2019-06-15 02:04] VITALS: BP 115/77; PULSE 79
[2019-06-15] MEDS ORDERED: Aluminum Hydroxide/Magnesium Hydroxide/Simethicone Susp 30 ML Cup PO ONE (02:54)
--- NOTE | 2019-06-15 02:55 | EDM.PDOC ---
ED HPI GENERAL MEDICAL PROBLEM - General Chief Complaint: General Stated Complaint: CHEST PAIN Time Seen by Provider: 06/15/19 01:30 - History of Present Illness INITIAL COMMENTS - FREE TEXT/NARRATIVE: 23-year-old gentleman, presented to ER for worsening chest pain for the last 2 months. Also coughing. No hemoptysis. No shortness of breath. Has burning sensation that radiates up to the throat. no leg swelling. no hemoptysis. no weakness no numbness. has had similar pain for months. Left Generalized Pain Score (Numeric/FACES): 8 - Related Data Allergies Allergy/AdvReac Type Severity Reaction Status Date / Time No Known Allergies Allergy Verified 06/15/19 01:04 Home Meds: Home Meds . [No Known Home Meds] 06/07/19 [History] Past Medical History - Past Health History Medical/Surgical History: Denies Medical/Surgical History HEENT History: Reports: None Cardiovascular History: Reports: None Respiratory History: Reports: None Gastrointestinal History: Reports: None Genitourinary History: Reports: None Musculoskeletal History: Reports: None Neurological History: Reports: None Psychiatric History: Reports: Anxiety, Panic Attack Endocrine/Metabolic History: Reports: None Insulin Pump Model and Environmental Health Inspector: N/A Hematologic History: Reports: None Immunologic History: Reports: None Oncologic (Cancer) History: Reports: None Dermatologic History: Reports: None - Infectious Disease History Infectious Disease History: Reports: None - Past Surgical History Head Surgeries/Procedures: Reports: None Male Surgical History: Reports: None Social & Family History - Family History Family Medical History: Noncontributory - Tobacco Use Smoking Status *Q: Current Some Day Smoker Years of Tobacco use: 11 Packs/Tins Daily: 1 - Caffeine Use Caffeine Use: Reports: None - Recreational Drug Use Recreational Drug Use: No ED ROS GENERAL - Review of Systems Review Of Systems: Comprehensive ROS is negative, except as noted in HPI. ED EXAM, GENERAL - Physical Exam Exam: See Below Exam Limited By: No Limitations General Appearance: Alert Ears: Normal External Exam Nose: Normal Inspection Throat/Mouth: Normal Inspection Head: Atraumatic, Normocephalic Neck: Normal Inspection, Supple, Non-Tender Respiratory/Chest: No Respiratory Distress, Lungs Clear Cardiovascular: Normal Peripheral Pulses, Regular Rate, Rhythm, No Edema, No Gallop, No JVD, No Murmur, No Rub Peripheral Pulses: 4+: Radial (L), Radial (R), Dorsalis Pedis (L), Dorsalis Pedis (R) GI/Abdominal: Soft, Non-Tender Back Exam: Normal Inspection Extremities: Normal Inspection Neurological: Alert, Oriented Psychiatric: Normal Affect Skin Exam: Warm Lymphatic: No Adenopathy EKG INTERPRETATION Rhythm: NSR P-Wave: Present QRS: Normal ST-T: Normal Course - Vital Signs Last Recorded V/S: Last Vital Signs Temp 97.4 F 06/15/19 02:04 Pulse 79 06/15/19 02:04 Resp 15 06/15/19 02:04 BP 115/77 06/15/19 02:04 Pulse Ox 97 06/15/19 02:04 - Orders/Labs/Meds Labs: Laboratory Tests 06/15/19 06/15/19 Range/Units 03:35 03:35 WBC 4.90 (4.0-11.0) K/uL RBC 4.93 (4.50-5.90) M/uL Hgb 15.3 (13.0-17.0) g/dL Hct 45.7 (38.0-50.0) % MCV 92.7 (80.0-98.0) fL MCH 31.0 (27.0-32.0) pg MCHC 33.5 (31.0-37.0) g/dL RDW Std Deviation 44.6 (28.0-62.0) fl RDW Coeff of Dayana 13 (11.0-15.0) % Plt Count 185 (150-400) K/uL MPV 11.20 (7.40-12.00) fL Neut % (Auto) 45.9 L (48.0-80.0) % Lymph % (Auto) 40.4 H (16.0-40.0) % Kinney % (Auto) 8.8 (0.0-15.0) % Eos % (Auto) 4.7 (0.0-7.0) % Baso % (Auto) 0.2 (0.0-1.5) % Neut # (Auto) 2.3 (1.4-5.7) K/uL Lymph # (Auto) 2.0 (0.6-2.4) K/uL Kinney # (Auto) 0.4 (0.0-0.8) K/uL Eos # (Auto) 0.2 (0.0-0.7) K/uL Baso # (Auto) 0.0 (0.0-0.1) K/uL Nucleated RBC % 0.0 /100WBC Nucleated RBCs # 0 K/uL Sodium 144 (136-148) mmol/L Potassium 3.8 (3.5-5.1) mmol/L Chloride 104 (98-107) mmol/L Carbon Dioxide 29.2 (21.0-32.0) mmol/L BUN 13 (7.0-18.0) mg/dL Creatinine 1.0 (0.8-1.3) mg/dL Est Cr Clr Drug Dosing 123.94 mL/min Estimated GFR (MDRD) > 60.0 ml/min Glucose 91 (74-106) mg/dL Calcium 9.0 (8.5-10.1) mg/dL Total Bilirubin 0.9 (0.2-1.0) mg/dL AST 19 (15-37) IU/L ALT 36 (14-63) IU/L Alkaline Phosphatase 74 (46-116) U/L Troponin I < 0.050 (0.000-0.056) ng/mL Total Protein 7.0 (6.4-8.2) g/dL Albumin 4.0 (3.4-5.0) g/dL Globulin 3.0 (2.6-4.0) g/dL Albumin/Globulin Ratio 1.3 (0.9-1.6) Lipase 98 (73-393) U/L Meds: Medications Discontinued Medications Generic Name Dose Route Start Last Admin Trade Name Sophie PRN Reason Stop Dose Admin Al Hydroxide/Mg Hydroxide 30 ml 06/15/19 02:54 06/15/19 03:34 Mag-Al Plus PO 06/15/19 02:55 30 ml ONETIME ONE Administration - Re-Assessments/Exams Free Text/Narrative Re-Assessment/Exam: 06/15/19 04:09 patient left AMA without waiting to have discussion with me. labs to be reviewed. sounds like his pain was chronic and perhaps gerd related. Departure - Departure Time of Disposition: 03:00 (unclear when he left ) Disposition: Against Medical Advice 07 Clinical Impression: Chest pain - Discharge Information Referrals: Mika Haas MD [Primary Care Provider] - Forms: ED Department Discharge Sepsis Event Note - Evaluation Sepsis Screening Result: No Definite Risk - Focused Exam Date Exam was Performed: 06/18/19 Time Exam was Performed: 07:28
--- NOTE | 2019-06-15 03:44 | CR ---
INDICATION: chest pain TECHNIQUE: Chest 2 views. COMPARISON: 05/26/19 FINDINGS: Cardiovascular and mediastinum: Heart size and vasculature are normal in caliber and appearance. Mediastinum is within normal limits. Lungs and pleural spaces: Lungs are clear. No sign of infiltrate or mass. No sign of pleural effusion. No pneumothorax. Bones and soft tissues: No significant findings. IMPRESSION: Unremarkable chest. Dictated by: Lauri Velarde MD @ 06/15/2019 03:42:27 (Electronically Signed)
[2019-06-15 04:06] LABS: BLOOD UREA NITROGEN,BUN 13 mg/dL (7.0-18.0); CARBON DIOXIDE,CO2 29.2 mmol/L (21.0-32.0); CHLORIDE,CL 104 mmol/L (98-107); GLUCOSE RANDOM 91 mg/dL (74-106); LIPASE 98 U/L (73-393); POTASSIUM,K 3.8 mmol/L (3.5-5.1); SODIUM,NA 144 mmol/L (136-148)
== END 2019-06-15 04:00 | disposition left against medical advice (07) ==
LOC: MW.ED 00:49
DX: R07.9 Chest pain, unspecified (principal); F17.210 Nicotine dependence, cigarettes, uncomplicated
CPT/HCPCS: 36415; 71046; 80053; 83690; 84484; 85025; 93005; 99285; A9270; 99283

== ENCOUNTER 2019-06-20 18:37 | Emergency (ER) | payer SELFPAY ==
--- NOTE | 2019-06-20 19:08 | EDM.PDOC ---
ED HPI GENERAL MEDICAL PROBLEM - General Chief Complaint: Neck Problem Stated Complaint: LEFT SIDE OF NECK IS STICKING OUT Time Seen by Provider: 06/20/19 19:07 Source of Information: Reports: Patient History Limitations: Reports: No Limitations - History of Present Illness INITIAL COMMENTS - FREE TEXT/NARRATIVE: Patient is a 23-year-old male who just was seen his PCP few hours prior to arrival for atypical chest pain that is being treated as gastroesophageal reflux disease. Patient was on his way home when he turned his neck and felt a "pop" sound on his left lower neck and started having pain in this area. Patient is complaining of swelling in his left lateral lower neck that I do not appreciate by visual or tactile exam. He denies having a sore throat or earache or sinus infection. Eyes any fever or shaking chills. He states the area is tender to touch. He has not had similar symptoms before. He is taken nothing for his current pain symptoms. He rates the pain is moderate in intensity. Onset: Today, Sudden Duration: Hour(s): (1) Location: Reports: Neck Quality: Reports: Sharp Severity: Moderate Improves with: Reports: None Worsens with: Reports: Movement Associated Symptoms: Reports: No Other Symptoms left sided neck pain Pain Score (Numeric/FACES): 6 - Related Data Allergies Allergy/AdvReac Type Severity Reaction Status Date / Time No Known Allergies Allergy Verified 06/20/19 18:49 Home Meds: Home Meds . [No Known Home Meds] 06/07/19 [History] Past Medical History - Past Health History Medical/Surgical History: Denies Medical/Surgical History HEENT History: Reports: None Cardiovascular History: Reports: None Respiratory History: Reports: None Gastrointestinal History: Reports: None Genitourinary History: Reports: None Musculoskeletal History: Reports: None Neurological History: Reports: None Psychiatric History: Reports: Anxiety, Panic Attack Endocrine/Metabolic History: Reports: None Insulin Pump Model and Digital Media Buyer: N/A Hematologic History: Reports: None Immunologic History: Reports: None Oncologic (Cancer) History: Reports: None Dermatologic History: Reports: None - Infectious Disease History Infectious Disease History: Reports: None - Past Surgical History Head Surgeries/Procedures: Reports: None Male Surgical History: Reports: None Social & Family History - Family History Family Medical History: Noncontributory - Tobacco Use Smoking Status *Q: Current Every Day Smoker Years of Tobacco use: 11 Packs/Tins Daily: 0.2 - Caffeine Use Caffeine Use: Reports: None - Recreational Drug Use Recreational Drug Use: No ED ROS GENERAL - Review of Systems Review Of Systems: Comprehensive ROS is negative, except as noted in HPI. ED EXAM, UPPER BACK/NECK PAIN - Physical Exam Exam: See Below Exam Limited By: No Limitations General Appearance: Alert, WD/WN, No Apparent Distress Ears Exam: TM Erythema (On the left eardrum with normal landmarks), TM Obscured by Cerumen (On right tympanic membrane. ) Throat/Mouth Exam: Normal Inspection, Normal Oropharynx Head Exam: Atraumatic, Normocephalic Neck Exam: Full Range of Motion, Normal Alignment, Painful Range of Motion, Tender Lateral (Patient is tender on the left side at the base of the sternocleidomastoid muscle which appears to be in mild spasm. I feel nothing swollen or no enlarged lymph nodes or no change in warmth or color in the area.) Cardiovascular/Respiratory: No Respiratory Distress Extremities: Normal Inspection Neurologic: No Motor/Sensory Deficits Psychiatric: Anxious Skin Exam: Normal Color, Warm/Dry Course - Vital Signs Text/Narrative:: I am not sure what is causing the patient is pain probably is probably is muscle spasm. I do not feel any cervical lymphadenopathy. I am not appreciating any swelling though he is tender in this area. Is no indication of cellulitis or abscess. Skin exam is normal. Last Recorded V/S: Last Vital Signs Temp 36.3 C 06/20/19 18:49 Pulse 86 06/20/19 18:49 Resp 18 06/20/19 18:49 BP 114/72 06/20/19 18:49 Pulse Ox 98 06/20/19 18:49 Departure - Departure Time of Disposition: 19:28 Disposition: Home, Self-Care 01 Condition: Good Clinical Impression: Muscle spasm - Discharge Information Instructions: Muscle Cramps and Spasms, [id number] Referrals: Mika Haas MD [Primary Care Provider] - Forms: ED Department Discharge Additional Instructions: The following information is given to patients seen in the emergency department who are being discharged to home. This information is to outline your options for follow-up care. We provide all patients seen in our emergency department with a follow-up referral. The need for follow-up, as well as the timing and circumstances, are variable depending upon the specifics of your emergency department visit. If you don't have a primary care physician on staff, we will provide you with a referral. We always advise you to contact your personal physician following an emergency department visit to inform them of the circumstance of the visit and for follow-up with them and/or the need for any referrals to a consulting specialist. The emergency department will also refer you to a specialist when appropriate. This referral assures that you have the opportunity for follow-up care with a specialist. All of these measure are taken in an effort to provide you with optimal care, which includes your follow-up. Under all circumstances we always encourage you to contact your private physician who remains a resource for coordinating your care. When calling for follow-up care, please make the office aware that this follow-up is from your recent emergency room visit. If for any reason you are refused follow-up, please contact the [facility] Emergency Department at and asked to speak to the emergency department charge nurse. Care Plan Goals: Ice and/or heat. Ibuprofen with meals. Massage if tolerated. Follow-up with PCP if symptoms continue. Return to ER if worse. Sepsis Event Note - Evaluation Sepsis Screening Result: No Definite Risk - Focused Exam Vital Signs: Vital Signs Temp Pulse Resp BP Pulse Ox 06/20/19 18:49 36.3 C 86 18 114/72 98 Date Exam was Performed: 06/20/19 Time Exam was Performed: 19:21
[2019-06-20 19:52] VITALS: BP 118/67; PULSE 92
== END 2019-06-20 19:42 | disposition home or self-care (01) ==
LOC: MW.ED 18:37
DX: M62.838 Other muscle spasm (principal); F17.210 Nicotine dependence, cigarettes, uncomplicated
CPT/HCPCS: 99283

== ENCOUNTER 2019-09-30 11:33 | Emergency (ER) | payer SELFPAY ==
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
--- NOTE | 2019-09-30 12:36 | CT ---
Head CT Technique: Multiple axial sections through the brain were obtained. Intravenous contrast was not utilized. Comparison: Prior head CT exam of 05/11/19. Findings: Ventricles along with basal cisterns and sulci over the convexities are within normal limits for age. No abnormal parenchymal densities are seen. No evidence of intracranial hemorrhage. No midline shift or mass-effect is seen. Bone window settings were reviewed which shows minimal densities within the inferior right maxillary sinus which are most likely due to chronic small retention cysts. Defect is identified within the posterior right calvarium overlying the right cerebellar hemisphere which is stable from previous study. No acute calvarial finding is seen. Impression: 1. 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 2. No acute intracranial abnormality is appreciated. Diagnostic code #2 This report was dictated in MDT
[2019-09-30 18:59] VITALS: BP 108/77; PULSE 76
== END 2019-09-30 13:56 | disposition home or self-care (01) ==
LOC: MW.ED 11:33
DX: S16.1XXA Strain of muscle, fascia and tendon at neck level, initial encounter (principal); J45.909 Unspecified asthma, uncomplicated; F17.210 Nicotine dependence, cigarettes, uncomplicated; Z20.828 Contact with and (suspected) exposure to other viral communicable diseases; X58.XXXA Exposure to other specified factors, initial encounter
CPT/HCPCS: 70450; 70450-26; 99282; 99284-25; U0002

== ENCOUNTER 2019-10-04 02:14 | Emergency (ER) | payer SELFPAY ==
[2019-10-04] MEDS ORDERED: Ketorolac 15 MG/ML SDV IVPUSH ONE (02:39)
[2019-10-04] MEDS ORDERED: Sodium Chloride 0.9% 1,000 ML IV ONE (02:39)
[2019-10-04] MEDS ORDERED: Sodium Chloride 0.9% 2.5 ML Syringe FLUSH PRN (02:39)
[2019-10-04] MEDS ORDERED: Sodium Chloride 0.9% 10 ML Syringe FLUSH PRN (02:39)
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
[2019-10-04] MEDS ORDERED: Ibuprofen 600 MG Tab PO ONE (02:57)
[2019-10-04 03:18] LABS: BLOOD UREA NITROGEN,BUN 12 mg/dL (7.0-18.0); CARBON DIOXIDE,CO2 29.1 mmol/L (21.0-32.0); CHLORIDE,CL 104 mmol/L (98-107); GLUCOSE RANDOM 122 mg/dL (74-106); POTASSIUM,K 4.2 mmol/L (3.5-5.1); SODIUM,NA 141 mmol/L (136-148)
--- NOTE | 2019-10-04 04:51 | US ---
INDICATION: Left calf pain COMPARISON: None. TECHNIQUE: A compression venous ultrasound exam was performed of the left lower extremity using christian-scale imaging, color Doppler and spectral Doppler analysis. FINDINGS: The common femoral vein and proximal greater saphenous vein are compressible and demonstrate normal phasic flow with augmentation. The superficial femoral vein, popliteal vein, posterior tibial vein, and peroneal vein are also compressible and demonstrate normal phasic flow with augmentation. IMPRESSION: No evidence of left lower extremity deep venous thrombosis. Dictated by Valeriano Sarmiento MD @ Oct 04 2019 4:48AM Signed by Dr. Valeriano Sarmiento @ Oct 04 2019 4:49AM
[2019-10-04 05:15] VITALS: BP 131/78; PULSE 78
== END 2019-10-04 05:20 | disposition home or self-care (01) ==
LOC: MW.ED 02:14
DX: M79.662 Pain in left lower leg (principal); M54.5 Low back pain; J45.909 Unspecified asthma, uncomplicated
CPT/HCPCS: 36415; 80048; 85025; 85610; 93971; 99284; A9270; J7030; 99282